=== PATIENT | male | born 1955 | race Caucasian/White ===

== ENCOUNTER → 2019-04-19 | Day surgery (SDC) | payer BC ==
[2019-04-18 11:18] LABS: BASOPHILS % 0.7 % (0.0-1.0); EOSINOPHILS # (AUTO) 0.1 (0.0-0.4); EOSINOPHILS % 1.8 % (0.0-6.0); HEMATOCRIT 44.1 % (38.2-49.6); HEMOGLOBIN 14.8 g/dL (14.0-18.0); LYMPHOCYTES # (AUTO) 1.6 (1.0-3.2); MEAN CORPUSCULAR HGB CONC 33.6 g/dL (31-35); MEAN CORPUSCULAR VOLUME 89.3 fL (81-99); MONOCYTES # (AUTO) 0.4 (0.2-0.8); MONOCYTES % 6.7 % (4.4-11.3); NEUTROPHILS # (AUTO) 3.9 (2.1-6.9); NEUTROPHILS % 64.5 % (38.7-80.0); PLATELET COUNT 188 x10e3/uL (140-360); RED BLOOD COUNT 4.94 x10e6/uL (4.3-5.7); RED CELL DISTRIBUTION WIDTH 12.7 % (11.7-14.4)
[~2019-04-19] MED LIST: ATENOLOL25 MG PO; BENZONATATE100 MG PO; CIALIS5 MG PO; FENTANYL CITRATE/PF 100MCG/2 ML INJ ONE; FLUCONAZOLE200 MG PO; HYOSCYAMINE 0.125 MG TAB ONE; LIPITOR PO; LISINOPRIL PO; LISINOPRIL2.5 MG PO; LIVALO2 MG PO; METFORMIN HCL500 MG PO; METOPROLOL SUCC25 MG PO; MIDAZOLAM HCL 2 MG/2 ML VIAL ONE; PROAIR HFA INH8.5 GM INH; PROPOFOL IV EMULSION 10 MG/ML 50 ML VIAL ONE; moxifloxacin OP
--- NOTE | 2019-04-19 07:15 | NUR ---
SPIRITUAL CARE - Pre-Surgery Assessment: Pt in bed. Pt's at bedside. Pt reported supportive attention from family and friends. Intervention: I provided pastoral presence, hospitality, and sympathetic listening. I acquainted pt with availability of seaming machine operator while hospitalized. Outcome: Pt expressed appreciation for visit. No need for follow up indicated at this time. [facility]ual [facility] Department O: [phone] Pager: [phone] ([phone] number calling from)
[2019-04-19 09:25] VITALS: BP 125/73
--- NOTE | 2019-04-19 12:30 | Operative Report ---
DATE OF PROCEDURE: 04/19/2019 SURGEON: Fawad Umanzor MD PROCEDURES: Colonoscopy and polypectomy with biopsies. INDICATIONS FOR PROCEDURE: Colorectal cancer screening, history of bright red blood per rectum. MEDICATIONS: The patient was done under MAC, please see anesthesiologist's note. PROCEDURE IN DETAIL: With the patient in the left lateral decubitus position, a flexible fiberoptic Olympus colonoscope was inserted into the rectum with ease and advanced all the way to the cecum. The scope was then withdrawn slowly, mucosa overlying the cecum and ascending colon appeared to be within normal limits. Three polyps were removed per the biopsy forceps from the transverse colon. Scattered diverticular disease was noted, but was more prominent in the left colon. The descending and the sigmoid other than for diverticular disease appeared to be within normal limits. The mucosa overlying the rectum revealed some patchy areas of erythema and moderate edema and biopsies were obtained. One minute polyp was hot biopsied from the rectum. The scope was then retroflexed into the distal rectum and moderate to large internal hemorrhoids were noted, none of which was actively bleeding. The scope was then straightened out, it was subsequently withdrawn, and the patient tolerated the procedure well. IMPRESSION: 1. Transverse colon polyps x3, removed per the cold biopsy forceps. 2. Diverticulosis. 3. Proctitis, mild. 4. Rectal polyp, hot biopsied. 5. Internal hemorrhoids, none actively bleeding. PLAN: Follow up histology. Initiate high-fiber, low-fat diet. Initiate high-fiber supplement. Anusol HC suppositories b.i.d. x10 days then p.r.n. If bleeding continues, the patient might benefit from a general surgical opinion. The patient might benefit from a followup colonoscopy in 3 years. Fawad Umanzor MD [facility] [place][id number] cc: Ptarick Lam MD
== END | disposition home or self-care (01) ==
LOC: OR 06:01
PROVIDERS: ATTEND Internal Medicine Gastroenterology
DX: Z12.11 Encounter for screening for malignant neoplasm of colon (principal); K63.5 Polyp of colon; K62.1 Rectal polyp; K57.30 Diverticulosis of large intestine without perforation or abscess without bleeding; K62.89 Other specified diseases of anus and rectum; K64.8 Other hemorrhoids; G47.33 Obstructive sleep apnea (adult) (pediatric); I25.810 Atherosclerosis of coronary artery bypass graft(s) without angina pectoris; I10 Essential (primary) hypertension; E78.5 Hyperlipidemia, unspecified; E11.9 Type 2 diabetes mellitus without complications; I25.2 Old myocardial infarction; Z88.0 Allergy status to penicillin; Z01.810 Encounter for preprocedural cardiovascular examination; Z01.812 Encounter for preprocedural laboratory examination; Z79.84 Long term (current) use of oral hypoglycemic drugs; Z68.35 Body mass index [BMI] 35.0-35.9, adult; Z95.0 Presence of cardiac pacemaker; Z95.1 Presence of aortocoronary bypass graft; Z87.891 Personal history of nicotine dependence
CPT/HCPCS: 36415 ×2; 45380; 45384; 82948; 85025; 93005; J2250; J2704; J3010; 45378

== ENCOUNTER 2020-10-25 10:15 | Emergency (ER) | payer BC ==
[~2020-10-25] VITALS: Ht 167.6 cm; Wt 95.3 kg
[~2020-10-25 10:15] MED LIST changes: -FENTANYL CITRATE/PF 100MCG/2 ML INJ ONE; -HYOSCYAMINE 0.125 MG TAB ONE; -MIDAZOLAM HCL 2 MG/2 ML VIAL ONE; -PROPOFOL IV EMULSION 10 MG/ML 50 ML VIAL ONE
[2020-10-25] MEDS ORDERED: LIDOCAINE HCL 1% LOCAL INJ 20 ML VIAL ONE (10:42)
== END 2020-10-25 10:51 | disposition home or self-care (01) ==
LOC: ER 10:29
DX: S61.412A Laceration without foreign body of left hand, initial encounter (principal); W26.0XXA Contact with knife, initial encounter; E78.00 Pure hypercholesterolemia, unspecified; Z95.1 Presence of aortocoronary bypass graft; Z95.5 Presence of coronary angioplasty implant and graft
CPT/HCPCS: 12001; 99283; J2001

== ENCOUNTER 2021-03-13 11:25 | Emergency (ER) | payer BC ==
[~2021-03-13] VITALS: Ht 167.6 cm; Wt 95.3 kg
[2021-03-13] MEDS ORDERED: CASIRIVIMAB/IMDEVIMAB 600 MG in SODIUM CHLORIDE 0.9% 250ML 250 ML IV ONE (11:45)
[2021-03-13] MEDS ORDERED: ACETAMINOPHEN 325 MG TAB PO ONE (13:45)
[2021-03-13] MEDS ORDERED: ACETAMINOPHEN 325 MG TAB ONE (13:50)
[2021-03-13] MEDS ORDERED: VENTOLIN HFA18 GM INH (14:48)
[2021-03-13 14:54] VITALS: BP 123/68
== END 2021-03-13 14:48 | disposition home or self-care (01) ==
LOC: ER 11:37
DX: R50.9 Fever, unspecified (principal); R05 Cough; U07.1 COVID-19; I10 Essential (primary) hypertension; E11.9 Type 2 diabetes mellitus without complications; E78.00 Pure hypercholesterolemia, unspecified
CPT/HCPCS: 99283; J7050